=== PATIENT | male | born 1995 | race Caucasian/White ===

== ENCOUNTER 2022-05-08 09:25 | Emergency (ER) | payer OTHER ==
[2022-05-08] MEDS ORDERED: ACETAMINOPHEN 1000 MG/100 ML BAG IVPB ONE (09:57)
[2022-05-08] MEDS ORDERED: SODIUM CHLORIDE 0.9% 500 ML INFUS.BAG IV ONE ×2 (09:57→14:36)
[2022-05-08 09:59] VITALS: BMI 28.3
[2022-05-08] MEDS ORDERED: ACETAMINOPHEN INJECTION 100 ML IVPB ONE (10:00)
[2022-05-08] MEDS ORDERED: DIPHTH,PERTUSS(ACELL),TET 0.5 ML DISP.SYRIN IM ONE ×2 (10:20→11:14)
[2022-05-08 10:44] LABS: INR 1.02 (0.83-1.09); PROTHROMBIN TIME (PATIENT) 11.7 SEC (9.7-13.0)
[2022-05-08 10:52] LABS: HEMATOCRIT 42.2 % (35.4-49); HEMOGLOBIN 14.4 G/dL (11.7-16.9); MCH 30.6 pg (25.7-33.7); MCHC 34.1 g/dl (32.0-35.9); MEAN CELL VOLUME 89.6 fl (80-96); MEAN PLT VOLUME 8.4 fl (7.5-11.1); PLATELET COUNT 193.8 10^3/uL (134-434); RBC 4.71 10^6/uL (4.00-5.60); RDW 13.6 % (11.9-15.9); WHITE BLOOD COUNT 7.8 10^3/uL (4.0-10.8)
[2022-05-08 10:53] LABS: ALBUMIN 4.2 g/dl (3.4-5.0); BILIRUBIN,TOTAL 0.5 mg/dl (0.2-1); CALCIUM 9.1 mg/dl (8.5-10); TOT PROT 7.3 g/dl (6.4-8.2)
[2022-05-08 12:55] VITALS: BP 106/52; TEMP 98.5
[2022-05-08 13:50] LABS: EPITHELIAL CELLS RARE /hpf
[2022-05-08 14:57] VITALS: PULSE 50
== END 2022-05-08 15:25 | disposition short-term general hospital (02) ==
LOC: FER 09:25
PROC: 3E033GC Introduction of Other Therapeutic Substance into Peripheral Vein, Percutaneous Approach (ICD-10-PCS; principal; 2022-05-08)
PROC: 3E0234Z Introduction of Serum, Toxoid and Vaccine into Muscle, Percutaneous Approach (ICD-10-PCS; 2022-05-08)
DX: S36.69XA Other injury of rectum, initial encounter (principal); S31.811A Laceration without foreign body of right buttock, initial encounter; W22.09XA Striking against other stationary object, initial encounter
CPT/HCPCS: 36415; 74019-TC-FY; 74177-TC; 76604; 76705-TC; 80053; 81003; 81015; 83605; 85025; 85610; 86850; 86900; 86901; 90715; 93308; 99291; C9803-CS; U0003; U0005